=== PATIENT | female | born 1960 | race Caucasian/White ===

== ENCOUNTER → 2021-01-03 | Outpatient (CLI) | payer OTHER | LOC: KOH-I 09:00 | DX: R16.0 Hepatomegaly, not elsewhere classified (principal); K80.20 Calculus of gallbladder without cholecystitis without obstruction; K76.0 Fatty (change of) liver, not elsewhere classified | CPT/HCPCS: 76705 ==

== ENCOUNTER → 2021-01-30 | Outpatient (CLI) | payer OTHER | LOC: KOH-I 10:08 | DX: M25.512 Pain in left shoulder (principal); M54.2 Cervicalgia; M47.812 Spondylosis without myelopathy or radiculopathy, cervical region; M48.02 Spinal stenosis, cervical region; M19.012 Primary osteoarthritis, left shoulder | CPT/HCPCS: 72050; 73030 ==

== ENCOUNTER → 2021-02-22 | Outpatient (CLI) | payer OTHER | LOC: EMI 16:00 | DX: M54.2 Cervicalgia (principal); M48.02 Spinal stenosis, cervical region; M25.512 Pain in left shoulder; M47.812 Spondylosis without myelopathy or radiculopathy, cervical region | CPT/HCPCS: 72141 ==